=== PATIENT | female | born 1985 | race Caucasian/White ===

== ENCOUNTER 2019-04-10 05:17 | Emergency (ER) | payer MEDICAID ==
[2019-04-10] MEDS ORDERED: METHYLPREDNISOLONE INJ 125 MG/2 ML SDV IV ONE (05:36)
[2019-04-10] MEDS ORDERED: EPINEPHRINE INJ/PF 1 MG/1 ML AMPULE IM ONE (05:36)
[2019-04-10] MEDS ORDERED: FAMOTIDINE INJ/PF 20 MG/2 ML SDV IV ONE (05:36)
[2019-04-10] MEDS ORDERED: NORMAL SALINE 1000 ML 1,000 ML IV ONE (05:40)
[2019-04-10] MEDS ORDERED: DIPHENHYDRAMINE HCL 50 MG/ML VIAL IV ONE (05:40)
--- NOTE | 2019-04-10 05:43 | ER Document Report ---
ED Medical Screen (RME) - General Stated Complaint: POSSIBLE ALLERGIC REACTION Time Seen by Provider: 04/10/19 05:40 Primary Care Provider: MALIK SPICER MD [Primary Care Provider] - Follow up as needed Notes: 33-year-old female chief complaint of allergic reaction. She comes by EMS. She broke out to a rash on her arms, hands, and both sides of her face. EMS gave 25 mg of Benadryl IV, symptoms started to improve, then they began worsening as patient arrived to the hospital. She denies difficulty swallowing or breathing, denies nausea or vomiting. She states she had a similar reaction about 14 years ago. She has a history of asthma. No obvious allergic exposures. TRAVEL OUTSIDE OF THE [place] IN LAST 30 DAYS: No - Related Data Allergies/Adverse Reactions: ibuprofen [From Motrin] Allergy (Severe, Verified 05/20/17 18:38) throat swelling Penicillins Allergy (Severe, Verified 05/20/17 18:38) Hives amoxicillin [Amoxicillin] Allergy (Verified 05/20/17 18:38) ketorolac tromethamine [From Toradol] Allergy (Verified 05/20/17 18:38) naproxen [Naproxen] Allergy (Verified 05/20/17 18:38) Past Medical History - Past Medical History Cardiac Medical History: Reports: Hx Hypertension Pulmonary Medical History: Reports: Hx Asthma, Hx Bronchitis Renal/ Medical History: Reports: Hx Ovarian Cysts. Denies: Hx Peritoneal Dialysis Musculoskeltal Medical History: Reports Hx Musculoskeletal Trauma Skin Medical History: Reports Hx MRSA Psychiatric Medical History: Reports: Hx Depression Traumatic Medical History: Reports: Hx Fractures Past Surgical History: Reports: Hx Appendectomy, Hx Section - X1, Hx Cholecystectomy, Hx Tonsillectomy - Immunizations Immunizations up to date: Yes Hx Diphtheria, Pertussis, Tetanus Vaccination: Yes Physical Exam - HEENT Pharynx: Normal. No: Uvular edema, Potential airway comprom. - Skin Skin irregularity: other - Patient with puffy appearance of the cheeks and eyelids with erythema. Scattered almost lacy erythema of the hands and arms. Otherwise unremarkable. Course - Re-evaluation Re-evalutation: Because of facial swelling patient will be given epinephrine, Benadryl, Cymetra, Pepcid. Placing a monitor. Giving IV fluids. Airway is normal. I have greeted and performed a rapid initial assessment of this patient. A c omprehensive ED assessment and evaluation of the patient, analysis of test results and completion of the medical decision making process will be conducted by additional ED providers. Doctor's Discharge - Discharge Referrals: MALIK SPICER MD [Primary Care Provider] - Follow up as needed
[2019-04-10] MEDS ORDERED: PREDNISONE 20 MG TABLET PO ONE (06:38)
[2019-04-10] MEDS ORDERED: TRIAMCINOLONE ACETONIDE 0.1% CREAM 15 GM TOP ONE (06:39)
[2019-04-10 07:04] VITALS: BP 142/78
--- NOTE | 2019-04-10 09:05 | ER Document Report ---
Entered by CHERIE MARQUES SCRIBE 04/10/19 0641 Acting as scribe for:DAVID DELGADO MD ED Allergic Reaction - General Chief Complaint: Allergic Reaction Stated Complaint: POSSIBLE ALLERGIC REACTION Time Seen by Provider: 04/10/19 05:40 Primary Care Provider: MALIK SPICER MD [Primary Care Provider] - Follow up as needed Information source: Patient Notes: 33-year-old female who presents to the emergency department today with complaints of an allergic reaction. Patient states she feels like her "face is on fire". Patient states the rash, itchiness, and pain is localized to her face and minimally on her neck. Patient states she she had a similar episode to this when she was much younger and she believes that then it was "either a wasp sting or poison rani". Patient states she has not been outside in the last several days and has not had any change in soaps or makeups. Patient does mention that her has been working outside recently. Patient denies any throat swelling or shortness of breath. TRAVEL OUTSIDE OF THE [place] IN LAST 30 DAYS: No - Related Data Allergies/Adverse Reactions: ibuprofen [From Motrin] Allergy (Severe, Verified 05/20/17 18:38) throat swelling Penicillins Allergy (Severe, Verified 05/20/17 18:38) Hives amoxicillin [Amoxicillin] Allergy (Verified 05/20/17 18:38) ketorolac tromethamine [From Toradol] Allergy (Verified 05/20/17 18:38) naproxen [Naproxen] Allergy (Verified 05/20/17 18:38) Past Medical History - General Information source: Patient, [facility] Records - Social History Smoking Status: Former Smoker - quit 2016 Cigarette use (# per day): No Chew tobacco use (# tins/day): No Smoking Education Provided: No Frequency of alcohol use: None Drug Abuse: None Lives with: Spouse/Significant other Family History: CAD, Hyperlipidemia, Hypertension Patient has suicidal ideation: No Patient has homicidal ideation: No - Past Medical History Cardiac Medical History: Reports: Hx Hypertension Pulmonary Medical History: Reports: Hx Asthma, Hx Bronchitis Renal/ Medical History: Reports: Hx Ovarian Cysts Musculoskeletal Medical History: Reports Hx Musculoskeletal Trauma Skin Medical History: Reports Hx MRSA Psychiatric Medical History: Reports: Hx Depression Traumatic Medical History: Reports: Hx Fractures Past Surgical History: Reports: Hx Appendectomy, Hx Section - X1, Hx Cholecystectomy, Hx Tonsillectomy - Immunizations Immunizations up to date: Yes Hx Diphtheria, Pertussis, Tetanus Vaccination: Yes Review of Systems - Review of Systems Constitutional: No symptoms reported EENT: denies: Throat swelling Cardiovascular: No symptoms reported Respiratory: denies: Short of breath Gastrointestinal: No symptoms reported Genitourinary: No symptoms reported Female Genitourinary: No symptoms reported Musculoskeletal: No symptoms reported Skin: See HPI, Change in color, Dryness, Rash Hematologic/Lymphatic: No symptoms reported Neurological/Psychological: No symptoms reported -: Yes All other systems reviewed and negative Physical Exam - Vital signs Vitals: Temp Pulse Resp BP 98.8 F 124 H 17 148/89 H 04/10/19 05:36 04/10/19 05:36 04/10/19 05:36 04/10/19 05:36 - Notes Notes: Physical Exam: General: Alert, appears well. HEENT: Normocephalic. Atraumatic. PERRL. Extraocular movements intact. Oropharynx clear. Airway is patent, no throat swelling. Neck: Supple. Non-tender. Respiratory: No respiratory distress. Clear and equal breath sounds bilaterally. Cardiovascular: Regular rate and rhythm. Extremities: Moves all four extremities. Upper extremities: Normal inspection. Normal ROM. Lower extremities: Normal inspection. No edema. Normal ROM. Neurological: Normal cognition. AAOx4. Normal speech. Psychological: Normal affect. Normal Mood. Skin: Skin between the zygomatic arch and mandible is erythematous, very dry, and thickened. Corners of the mouth are dry and cracking. Course - Vital Signs Vital signs: Temp Pulse Resp BP Pulse Ox 98.4 F 105 H 16 142/78 H 96 04/10/19 07:02 04/10/19 07:02 04/10/19 07:02 04/10/19 07:02 04/10/19 06:20 Discharge - Discharge Clinical Impression: Contact dermatitis Qualifiers: Contact dermatitis type: allergic Contact dermatitis trigger: unspecified trigger Qualified Code(s): L23.9 - Allergic contact dermatitis, unspecified cause Condition: Stable Disposition: HOME, SELF-CARE Additional Instructions: Allergic Contact Dermatitis You have a local allergic reaction, called contact dermatitis. This an allergy to something in contact with your skin. Poison rani, jewelry, soaps, perfumes, and chemicals are common causes. Typically, an itchy rash develops a few days after the exposure. If the reaction is severe, blisters may develop. Two to three weeks may be required for healing. Generally, treatment consists of: (1) a thorough washing with soap to remove the offending substance, (2) application of a cortisone cream, and (3) antihistamines for itching. If the reaction is particularly severe, further measures may be required. These can include soaking in epsom salts or Mica's solution, and oral cortisone medications. Call the doctor if the rash worsens despite treatment, or if signs of infection occur such as spreading redness, red streaks, swollen glands, swelling, or fever. Apply the triamcinolone cream that was dispensed to the affected skin on your face every 8 hours for the next few days. Take the prednisone as prescribed--start tomorrow. You are given today's dose here in the emergency room. Be sure to wash any clothes your your spouse had been wearing around the time your rash developed. Follow-up with your primary care provider if not improving. RETURN TO THE EMERGENCY ROOM IF ANY NEW OR WORSENING SYMPTOMS. Prescriptions: Prednisone [Deltasone 10 mg Tablet] 10 mg PO ASDIR PRN #21 tablet PRN Reason: Referrals: MALIK SPICER MD [Primary Care Provider] - Follow up as needed Scribe Attestation: 04/10/19 06:41 I personally performed the services described in the documentation, reviewed and edited the documentation which was dictated to the scribe in my presence, and it accurately records my words and actions. I personally performed the services described in the documentation, reviewed and edited the documentation which was dictated to the scribe in my presence, and it accurately records my words and actions.
== END 2019-04-10 07:02 | disposition home or self-care (01) ==
LOC: ER 05:17
DX: L23.9 Allergic contact dermatitis, unspecified cause (principal); J45.909 Unspecified asthma, uncomplicated; I10 Essential (primary) hypertension; Z87.891 Personal history of nicotine dependence; Z88.8 Allergy status to other drugs, medicaments and biological substances; Z88.0 Allergy status to penicillin
CPT/HCPCS: 99283; 96372; 96361; 96374; 96375; J1200; J0171; J2930; J7512; J3490; J7030; S0028